=== PATIENT | female | born 1995 | race Caucasian/White ===

== ENCOUNTER 2016-04-21 21:06 | Emergency (ER) | payer OTHER ==
--- NOTE | 2016-04-21 22:16 | ER Document Report ---
ED General - General Stated Complaint: SUICIDAL IDEATIONS Notes: Patient is a 20-year-old female who presents after cutting her right wrist in a suicide attempt. States that she has a history of cutting that but she's never done this with the intention of trying to kill herself before but states that she was trying to seriously injure herself tonight. States that she's had a long-standing history of depression and anxiety that has never been treated. She is not currently under a psychiatrist's care. Notes multiple home stressors that are worsening her symptoms. Nothing improves her symptoms. Her did call EMS tonight. She denies any alcohol or drug use tonight. Denies any additional acute medical complaint. - Related Data Allergies/Adverse Reactions: No Known Allergies Allergy (Unverified 04/22/16 00:37) Past Medical History - General Information source: Patient - Social History Smoking Status: Never Smoker Frequency of alcohol use: None Drug Abuse: None Lives with: Spouse/Significant other Family History: Reviewed & Not Pertinent Review of Systems - Review of Systems Notes: Constitutional: Negative for fever. HENT: Negative for sore throat. Eyes: Negative for visual changes. Cardiovascular: Negative for chest pain. Respiratory: Negative for shortness of breath. Gastrointestinal: Negative for abdominal pain, vomiting or diarrhea. Genitourinary: Negative for dysuria. Musculoskeletal: Negative for back pain. Skin: Negative for rash. Neurological: Negative for headaches, weakness or numbness. 10 point ROS negative except as marked above and in HPI. Physical Exam - Vital signs Vitals: Temp Pulse Resp BP Pulse Ox 98.2 F 76 20 127/87 H 97 04/21/16 21:07 04/21/16 21:07 04/21/16 21:07 04/21/16 21:07 04/21/16 21:07 Interpretation: Normal Notes: PHYSICAL EXAMINATION: GENERAL: Well-appearing, well-nourished and in no acute distress. HEAD: Atraumatic, normocephalic. EYES: Pupils equal round and reactive to light, extraocular movements intact, sclera anicteric, conjunctiva are normal. ENT: nares patent, oropharynx clear without exudates. Moist mucous membranes. NECK: Normal range of motion, supple without lymphadenopathy LUNGS: Breath sounds clear to auscultation bilaterally and equal. No wheezes rales or rhonchi. HEART: Regular rate and rhythm without murmurs ABDOMEN: Soft, nontender, normoactive bowel sounds. No guarding, no rebound. No masses appreciated. EXTREMITIES: Normal range of motion, no pitting or edema. No cyanosis. NEUROLOGICAL: No focal neurological deficits. Moves all extremities spontaneously and on command. PSYCH: Normal mood, normal affect. SKIN: Warm, Dry, normal turgor, superficial 1 cm laceration over the right volar surface of the wrist Course - Re-evaluation Re-evalutation: 04/21/16 22:14 Patient presents with suicidal ideation,/her right wrist very superficially states that the intention was to kill herself. Patient has no formal prior diagnosis of psychiatric illness although admits to severe depression and anxiety "since I was little". She is not currently on any psychiatric medications. At this time, I believe she is at an elevated risk for completion of suicide and would benefit from psychiatric assessment morning. Her medical screening exam is otherwise unremarkable with exception of a small 1 cm laceration over the right volar wrist. There is an old healing laceration proximal to this region. Her tetanus will be updated. The wound was closed with Steri-Strips. She denies any additional medical complaints. Medical screening laboratories are unremarkable and she is cleared for psychiatric assessment - Vital Signs Vital signs: Temp Pulse Resp BP Pulse Ox 98.2 F 76 20 127/87 H 97 04/21/16 21:07 04/21/16 21:07 04/21/16 21:07 04/21/16 21:07 04/21/16 21:07 - EKG Interpretation by Me Additional EKG results interpreted by me: 04/22/16 02:39 Normal sinus rhythm. Rate 66. No ST elevations or depressions. QTC is 424. Discharge - Discharge Clinical Impression: Suicidal ideation, Attempted suicide Laceration of right wrist Qualifiers: Encounter type: initial encounter Qualified Code(s): S61.511A - Laceration without foreign body of right wrist, initial encounter Condition: Fair Disposition: PSYCH HOSP/UNIT
[2016-04-21] MEDS ORDERED: DIPH/PERTUSS(ACELL)/TETANUS VAC/PF 0.5 ML SYR (>=10YO) IM ONE (23:19)
--- NOTE | 2016-04-22 10:25 | ER Document Report ---
Doctor's Note Notes: 04/22/16 10:25 The patient is sleeping at this time, she did eat breakfast earlier. She is waiting to be seen by psychiatry determine what her disposition will be.
[2016-04-22 12:23] LABS: ABSOLUTE LYMPHOCYTES (AUTO) 1.7 10^3/uL (0.5-4.7); ABSOLUTE MONOCYTES (AUTO) 0.5 10^3/uL (0.1-1.4); BASOPHILS % (AUTO) 0.2 % (0-2); EOSINOPHILS % (AUTO) 0.3 % (0-6); HEMOGLOBIN 14.1 g/dL (12.0-15.5); HGB HCT DIFFERENCE 0.3; LYMPHOCYTES % (AUTO) 14.8 % (13-45); MEAN CORPUSCULAR HEMOGLOBIN 29.6 pg (27.0-33.4); MEAN CORPUSCULAR HGB CONC 33.6 g/dL (32.0-36.0); MEAN CORPUSCULAR VOLUME 88 fl (80-97); MONOCYTES % (AUTO) 4.6 % (3-13); RED BLOOD COUNT 4.78 10^6/uL (3.72-5.28); RED CELL DISTRIBUTION WIDTH 12.6 % (11.5-14.0); WHITE BLOOD COUNT 11.2 10^3/uL (4.0-10.5)
[2016-04-22 12:26] LABS: SEGMENTED NEUTROPHILS % (AUTO) 80.1 % (42-78)
[2016-04-22 12:37] LABS: ALANINE AMINOTRANSFERASE 34 U/L (5-35); ALKALINE PHOSPHATASE 54 U/L (50-135); ANION GAP 10 (5-19); ASPARTATE AMINO TRANSFERASE 23 U/L (5-30); BILIRUBIN,TOTAL 0.6 mg/dL (0.2-1.3); BLOOD UREA NITROGEN 8 mg/dL (7-20); CALCIUM 9.9 mg/dL (8.4-10.2); CARBON DIOXIDE 26 mmol/L (22-30); CHLORIDE 104 mmol/L (98-107); CREATININE RESULT 0.79 mg/dL (0.52-1.25); GLUCOSE 86 mg/dL (75-110); POTASSIUM 4.4 mmol/L (3.6-5.0); SODIUM 140.1 mmol/L (137-145); TOTAL PROTEIN 7.1 g/dL (6.3-8.2)
[2016-04-22 12:40] LABS: ALCOHOL < 10 mg/dL (NONE DETECTED)
[2016-04-22 12:43] LABS: APPEARANCE,URINE SLIGHTLY-CLOUDY; BILIRUBIN,URINE NEGATIVE (NEGATIVE); GLUCOSE, URINE NEGATIVE (NEGATIVE); KETONES,URINE TRACE mg/dL (NEGATIVE); LEUKOCYTE ESTERASE,URINE NEGATIVE (NEGATIVE); NITRITE,URINE NEGATIVE (NEGATIVE); PROTEIN,URINE NEGATIVE (NEGATIVE); URINE SPECIFIC GRAVITY 1.029; UROBILINOGEN,URINE NEGATIVE mg/dL (<2.0)
[2016-04-22 12:51] LABS: URINE BARBITURATES SCREEN NEGATIVE; URINE METHADONE SCREEN NEGATIVE; URINE OPIATES LOW NEGATIVE; URINE PHENCYCLIDINE SCREEN NEGATIVE
--- NOTE | 2016-04-22 12:53 | EKG REPORT ---
SEVERITY:- OTHERWISE NORMAL ECG - SINUS RHYTHM BORDERLINE LEFT AXIS DEVIATION : Confirmed by: Azar Dunbar 22-Apr-2016 12:52:25
[2016-04-22 14:02] VITALS: BP 110/75
--- NOTE | 2016-04-24 14:27 | PSYCHOLOGICAL NOTE ---
Psych Note - Psych Note Psych Note: Patient is a 20-year-old female who presents after cutting her right wrist in a suicide attempt. States that she has a history of cutting that but she's never done this with the intention of trying to kill herself before but states that she was trying to seriously injure herself tonight. States that she's had a long-standing history of depression and anxiety that has never been treated. She is not currently under a psychiatrist's care. Patient disclosed that she was suffering from marital discord. She continue disclosed that she cheated on her after finding out that he cheated on her 7 times. She disclosed that she told him that she did and he reacted very angry. She continued disclosed that he is currently deployed. She states that when she got off the phone with her she was very depressed and cut her wrists. Patient states she has a history of cutting however thought about killing herself this time. Patient states that once her cutting when further then she would normally have done she "chickened out because it hurt." She continued disclosed that she was "too scared" to actually go through with it and then the technical proposal writer came to the door. Patient carmella Hill states that she has been trying to assist the patient. She disclosed that shewas going on and agrees to the patient's safety resource. Liz agrees to ensure the patient has no access to weapons or medications while she is going through psychiatric treatment and outpatient. Sasha Hill and clinician discussed steps to take him. The patient would like to receive services; [place] Patient also decided to inform the family readiness officer of her husbands. Otherwise occurring to ensure has been safety because of his distraction while being deployed. 311 undisclosed depressive disorder History of self-harm Impression\\plan: Patient is recommended for rescind of IVC is considered psychiatrically cleared for discharge. Patient disclosed history of self-harm and thought about taking further however she states she was unable to because she was "too scared" she continued disclosed that she does not like the pain past her normal cutting. Patient agrees to seek outpatient resources to learn new coping skills. Patient carmella Hill agrees to be patient's resource for safety to ensure patient has no access to weapons medications and follow through with outpatient services. Patient will [place] with [facility] services to include [facility] and family readiness officer. Dr. Mohan was consulted on the care and management of this patient. Attending physician is in agreement with recommendations and disposition.
== END 2016-04-22 14:05 | disposition home or self-care (01) ==
LOC: ER 21:06
DX: R45.851 Suicidal ideations (principal); S61.511A Laceration without foreign body of right wrist, initial encounter; X78.9XXA Intentional self-harm by unspecified sharp object, initial encounter; F32.9 Major depressive disorder, single episode, unspecified; Z23 Encounter for immunization
CPT/HCPCS: 36415; 80053; 80307; 81001; 84703; 85025; 90471; 90715; 93005; 93010; 99285